=== PATIENT | male | born 1950 | race Caucasian/White ===

== ENCOUNTER 2017-04-22 07:51 | Outpatient (CLI) | payer BC | END 2017-04-22 07:52 | disposition home or self-care (01) | LOC: BICMAMMO 07:51 | PROVIDERS: ATTEND Internal Medicine Gastroenterology | DX: K21.0 Gastro-esophageal reflux disease with esophagitis (principal) | CPT/HCPCS: 77080 ==

== ENCOUNTER 2017-08-07 08:45 | Emergency (ER) | payer BC | END 2017-08-07 09:29 | disposition home or self-care (01) | LOC: SCSER 08:45 | DX: H10.9 Unspecified conjunctivitis (principal); Z79.899 Other long term (current) drug therapy | CPT/HCPCS: 99282 ==

== ENCOUNTER 2022-12-31 09:26 | Outpatient (CLI) | payer MEDICARE, BC | END 2022-12-31 09:27 | disposition home or self-care (01) | LOC: SCSRAD 09:26 | PROVIDERS: ATTEND Nurse Practitioner Family | DX: S69.91XA Unspecified injury of right wrist, hand and finger(s), initial encounter (principal) ==